=== PATIENT | male | born 1995 | race Caucasian/White ===

== ENCOUNTER 2020-03-27 19:46 | Emergency (ER) | payer OTHER ==
[~2020-03-27] VITALS: Ht 187.9 cm; Wt 111.3 kg
[~2020-03-27 19:46] MED LIST: ACULAR 0.5%3 ML OPH; AMOXICILLIN500 MG PO; NKHM; PEN-VEE K500 MG PO; TRAMADOL HCL50 MG PO; Tobrex Ophth S2.5 ML OPH
[2020-03-27 22:16] VITALS: BP 129/77
[2020-03-27] MEDS ORDERED: CEPHALEXIN500 M1 PO (22:42)
== END 2020-03-27 22:52 | disposition home or self-care (01) ==
LOC: ED 19:46
DX: S92.501A Displaced unspecified fracture of right lesser toe(s), initial encounter for closed fracture (principal); S80.211A Abrasion, right knee, initial encounter; Z79.899 Other long term (current) drug therapy; X58.XXXA Exposure to other specified factors, initial encounter; Y93.89 Activity, other specified; Y92.89 Other specified places as the place of occurrence of the external cause; Y99.8 Other external cause status

== ENCOUNTER 2021-11-20 21:46 | Emergency (ER) | payer SELFPAY ==
[~2021-11-20 21:46] MED LIST changes: +CEPHALEXIN500 M1 PO
== END 2021-11-20 22:59 | disposition left against medical advice (07) ==
LOC: ED 21:46
DX: Z53.21 Procedure and treatment not carried out due to patient leaving prior to being seen by health care provider (principal)

== ENCOUNTER 2021-11-20 23:28 | Emergency (ER) | payer SELFPAY ==
[~2021-11-20] VITALS: Ht 190.5 cm; Wt 128.4 kg
[2021-11-21 06:07] VITALS: BP 115/60
== END 2021-11-21 06:38 | disposition home or self-care (01) ==
LOC: ED 23:28
DX: S43.014A Anterior dislocation of right humerus, initial encounter (principal); M25.521 Pain in right elbow; W18.30XA Fall on same level, unspecified, initial encounter; Y93.89 Activity, other specified; Y92.89 Other specified places as the place of occurrence of the external cause; Y99.9 Unspecified external cause status

== ENCOUNTER 2022-02-09 03:27 | Emergency (ER) | payer SELFPAY ==
[~2022-02-09] VITALS: Ht 190.5 cm; Wt 127.0 kg
[2022-02-09 03:32] VITALS: BP 118/77
== END 2022-02-09 07:06 | disposition home or self-care (01) ==
LOC: ED 03:27
DX: S43.004A Unspecified dislocation of right shoulder joint, initial encounter (principal); W18.39XA Other fall on same level, initial encounter; Y93.89 Activity, other specified; Y92.89 Other specified places as the place of occurrence of the external cause; Y99.8 Other external cause status

== ENCOUNTER 2022-05-01 21:53 | Emergency (ER) | payer SELFPAY ==
[2022-05-02 01:28] VITALS: BP 122/74
== END 2022-05-02 01:35 | disposition home or self-care (01) ==
LOC: ED 21:53
DX: M24.411 Recurrent dislocation, right shoulder (principal); Z79.2 Long term (current) use of antibiotics; Z79.899 Other long term (current) drug therapy; X58.XXXA Exposure to other specified factors, initial encounter; Y93.I9 Activity, other involving external motion; Y92.488 Other paved roadways as the place of occurrence of the external cause; Y99.8 Other external cause status

== ENCOUNTER 2023-08-02 01:30 | Emergency (ER) | payer SELFPAY ==
[~2023-08-02] VITALS: Ht 190.5 cm; Wt 122.5 kg
[2023-08-02 06:43] VITALS: BP 128/82
== END 2023-08-02 07:19 | disposition home or self-care (01) ==
LOC: ED 01:30
DX: S43.004A Unspecified dislocation of right shoulder joint, initial encounter (principal); X50.1XXA Overexertion from prolonged static or awkward postures, initial encounter; Y93.89 Activity, other specified; Y92.89 Other specified places as the place of occurrence of the external cause; Y99.8 Other external cause status

== ENCOUNTER 2024-03-15 11:20 | Emergency (ER) | payer OTHER ==
[~2024-03-15] VITALS: Ht 190.5 cm; Wt 113.4 kg
[2024-03-15 11:55] VITALS: BP 109/68
[2024-03-15] MEDS ORDERED: FLUONAZOLE150 M1 PO (12:28)
== END 2024-03-15 12:15 | disposition home or self-care (01) ==
LOC: ED 11:20
DX: B35.3 Tinea pedis (principal)

== ENCOUNTER 2025-05-06 02:12 | Emergency (ER) | payer SELFPAY ==
[~2025-05-06] VITALS: Ht 190.5 cm; Wt 113.1 kg
[~2025-05-06 02:12] MED LIST changes: +FLUONAZOLE150 M1 PO
[2025-05-06] MEDS ORDERED: ETOMIDATE 20 MG/10 ML VIAL IV ONE (02:50)
[2025-05-06] MEDS ORDERED: Ondansetron Hydrochloride 4 MG/2 ML VIAL IV ONE (03:15)
[2025-05-06] MEDS ORDERED: SODIUM CHLORIDE 0.9% 1,000 ML IV ONE (03:40)
[2025-05-06 04:14] VITALS: BP 104/63; BP 104/69; BP 120/78; BP 122/88; BP 96/50
[2025-05-06 06:27] VITALS: BP 121/74
== END 2025-05-06 07:00 | disposition home or self-care (01) ==
LOC: ED 02:12
DX: S43.004A Unspecified dislocation of right shoulder joint, initial encounter (principal); X50.1XXA Overexertion from prolonged static or awkward postures, initial encounter; Y93.89 Activity, other specified; Y92.89 Other specified places as the place of occurrence of the external cause; Y99.8 Other external cause status